=== PATIENT | male | born 1985 | race Caucasian/White ===

== ENCOUNTER 2018-12-19 22:58 | Emergency (ER) | payer SELFPAY ==
--- NOTE | 2018-12-19 23:09 | EDM.PDOC ---
ED HPI GENERAL MEDICAL PROBLEM - General Chief Complaint: Back Pain or Injury Stated Complaint: PT HAS BACK PAIN Time Seen by Provider: 12/19/18 23:05 - History of Present Illness INITIAL COMMENTS - FREE TEXT/NARRATIVE: HISTORY AND PHYSICAL: History of present illness: Patient 33-year-old male presents with concern of low back pain 2 months he denies numbness weakness incontinence or retention bowel or bladder Review of systems: As per history of present illness and below otherwise all systems reviewed and negative. Past medical history: As per history of present illness and as reviewed below otherwise noncontributory. Surgical history: As per history of present illness and as reviewed below otherwise noncontributory. Social history: No reported history of drug or alcohol abuse. Family history: As per history of present illness and as reviewed below otherwise noncontributory. Physical exam: HEENT: Atraumatic, normocephalic, pupils reactive, negative for conjunctival pallor or scleral icterus, mucous membranes moist, throat clear, neck supple, nontender, trachea midline. Lungs: Clear to auscultation, breath sounds equal bilaterally, chest nontender. Heart: S1S2, regular, negative for clicks, rubs, or JVD. Abdomen: Soft, nondistended, nontender. Negative for masses or hepatosplenomegaly. Negative for costovertebral tenderness. Pelvis: Stable nontender. Genitourinary: Deferred. Rectal: Deferred. Extremities: Atraumatic, negative for cords or calf pain. Neurovascular unremarkable. Neuro: Awake, alert, oriented. Cranial nerves II through XII unremarkable. Cerebellum unremarkable. Motor and sensory unremarkable throughout. Exam nonfocal. Back: Patient is a mild tenderness in paravertebral region at the level of the lumbar spine no vertebral body or point tenderness patient able [employer] back on his heels deep tendon reflexes motor and sensory are normal Diagnostics: None Therapeutics: None Impression: #1 low back pain Definitive disposition and diagnosis as appropriate pending reevaluation and review of above. - Related Data Allergies Allergy/AdvReac Type Severity Reaction Status Date / Time shrimp Allergy Vomiting Verified 08/09/16 04:05 Home Meds: Home Meds . [No Known Home Meds] 08/09/16 [History] Past Medical History - Past Health History Medical/Surgical History: Denies Medical/Surgical History Social & Family History - Family History Family Medical History: Noncontributory - Caffeine Use Caffeine Use: Reports: None ED ROS GENERAL - Review of Systems Review Of Systems: ROS reveals no pertinent complaints other than HPI. ED EXAM, GENERAL - Physical Exam Exam: See Below (See dictation) Departure - Departure Time of Disposition: 23:08 Disposition: Home, Self-Care 01 Condition: Good Clinical Impression: Back pain - Discharge Information Additional Instructions: The following information is given to patients seen in the emergency department who are being discharged to home. This information is to outline your options for follow-up care. We provide all patients seen in our emergency department with a follow-up referral. The need for follow-up, as well as the timing and circumstances, are variable depending upon the specifics of your emergency department visit. If you don't have a primary care physician on staff, we will provide you with a referral. We always advise you to contact your personal physician following an emergency department visit to inform them of the circumstance of the visit and for follow-up with them and/or the need for any referrals to a consulting specialist. The emergency department will also refer you to a specialist when appropriate. This referral assures that you have the opportunity for followup care with a specialist. All of these measure are taken in an effort to provide you with optimal care, which includes your followup. Under all circumstances we always encourage you to contact your private physician who remains a resource for coordinating your care. When calling for followup care, please make the office aware that this follow-up is from your recent emergency room visit. If for any reason you are refused follow-up, please contact the [facility] emergency department at and asked to speak to the emergency department charge nurse . Diclofenac as prescribed follow-up primary medical doctor as needed as discussed return as needed as discussed
[2018-12-19 23:33] VITALS: BP 153/92
== END 2018-12-19 23:23 | disposition home or self-care (01) ==
LOC: MW.ED 22:58
DX: M54.5 Low back pain (principal); Z91.018 Allergy to other foods
CPT/HCPCS: 99283

== ENCOUNTER 2018-12-20 03:34 | Emergency (ER) | payer SELFPAY ==
[2018-12-20] MEDS ORDERED: Ketorolac 60 MG/2 ML SDV IM ONE (03:49)
--- NOTE | 2018-12-20 03:49 | EDM.PDOC ---
ED HPI GENERAL MEDICAL PROBLEM - General Chief Complaint: Back Pain or Injury Stated Complaint: BACK PAIN Time Seen by Provider: 12/20/18 03:46 - History of Present Illness INITIAL COMMENTS - FREE TEXT/NARRATIVE: HISTORY AND PHYSICAL: History of present illness: Patient 33-year-old male with history of back pain 2 months was seen here for same yesterday presents with persistent pain. No numbness weakness incontinence or times of bowel or bladder Review of systems: As per history of present illness and below otherwise all systems reviewed and negative. Past medical history: As per history of present illness and as reviewed below otherwise noncontributory. Surgical history: As per history of present illness and as reviewed below otherwise noncontributory. Social history: No reported history of drug or alcohol abuse. Family history: As per history of present illness and as reviewed below otherwise noncontributory. Physical exam: HEENT: Atraumatic, normocephalic, pupils reactive, negative for conjunctival pallor or scleral icterus, mucous membranes moist, throat clear, neck supple, nontender, trachea midline. Lungs: Clear to auscultation, breath sounds equal bilaterally, chest nontender. Heart: S1S2, regular, negative for clicks, rubs, or JVD. Abdomen: Soft, nondistended, nontender. Negative for masses or hepatosplenomegaly. Negative for costovertebral tenderness. Pelvis: Stable nontender. Genitourinary: Deferred. Rectal: Deferred. Extremities: Atraumatic, negative for cords or calf pain. Neurovascular unremarkable. Neuro: Awake, alert, oriented. Cranial nerves II through XII unremarkable. Cerebellum unremarkable. Motor and sensory unremarkable throughout. Exam nonfocal. Back: No vertebral body or point tenderness motor and sensory are normal the tendon reflexes are normal patient able stand on his toes back on his heels Diagnostics: UA UDS x-ray Therapeutics: Toradol 60 mg IM Impression: #1 low back pain Definitive disposition and diagnosis as appropriate pending reevaluation and review of above. Lower Back Pain Score (Numeric/FACES): 10 - Related Data Allergies Allergy/AdvReac Type Severity Reaction Status Date / Time shrimp Allergy Vomiting Verified 12/20/18 03:45 Home Meds: Home Meds . [No Known Home Meds] 08/09/16 [History] Past Medical History - Past Health History Medical/Surgical History: Denies Medical/Surgical History Social & Family History - Family History Family Medical History: Noncontributory - Caffeine Use Caffeine Use: Reports: None ED ROS GENERAL - Review of Systems Review Of Systems: ROS reveals no pertinent complaints other than HPI. ED EXAM, GENERAL - Physical Exam Exam: See Below (See dictation) Course - Vital Signs Last Recorded V/S: Last Vital Signs Temp 36.5 C 12/20/18 03:43 Pulse 107 H 12/20/18 03:43 Resp 18 12/20/18 03:43 BP 157/105 H 12/20/18 03:43 Pulse Ox 92 L 12/20/18 03:43 - Orders/Labs/Meds Orders: Active Orders 24 hr Category Date Time Status Lumbar Spine 2 or 3V [CR] Stat Exams 12/20/18 03:43 Ordered Departure - Departure Time of Disposition: 03:49 Disposition: Home, Self-Care 01 Clinical Impression: Back pain - Discharge Information Referrals: PCP,None [Primary Care Provider] - Additional Instructions: The following information is given to patients seen in the emergency department who are being discharged to home. This information is to outline your options for follow-up care. We provide all patients seen in our emergency department with a follow-up referral. The need for follow-up, as well as the timing and circumstances, are variable depending upon the specifics of your emergency department visit. If you don't have a primary care physician on staff, we will provide you with a referral. We always advise you to contact your personal physician following an emergency department visit to inform them of the circumstance of the visit and for follow-up with them and/or the need for any referrals to a consulting specialist. The emergency department will also refer you to a specialist when appropriate. This referral assures that you have the opportunity for followup care with a specialist. All of these measure are taken in an effort to provide you with optimal care, which includes your followup. Under all circumstances we always encourage you to contact your private physician who remains a resource for coordinating your care. When calling for followup care, please make the office aware that this follow-up is from your recent emergency room visit. If for any reason you are refused follow-up, please contact the [facility] emergency department at and asked to speak to the emergency department charge nurse. Diclofenac as prescribed and return as needed as discussed - My Orders Last 24 Hours: My Active Orders 12/20/18 03:43 Lumbar Spine 2 or 3V [CR] Stat - Assessment/Plan Last 24 Hours: My Active Orders 12/20/18 03:43 Lumbar Spine 2 or 3V [CR] Stat
--- NOTE | 2018-12-20 04:14 | CR ---
HISTORY: Low back pain COMPARISON: None available. FINDINGS: The lumbar spine was examined with AP, lateral, and lateral spot views for a total of three views. There is no sign of fracture or subluxation. The vertebral bodies are normal in height and they are in anatomic alignment. The disc spaces are normal in height as well. The visualized bony pelvis and bowel gas pattern are normal in appearance. IMPRESSION: Normal lumbar spine. Dictated by Israel Antoine MD @ Dec 20 2018 4:12AM Signed by Dr. Israel Antoine @ Dec 20 2018 4:13AM
[2018-12-20 06:06] VITALS: BP 133/71
== END 2018-12-20 06:08 | disposition home or self-care (01) ==
LOC: MW.ED 03:34
DX: M54.5 Low back pain (principal); Z91.018 Allergy to other foods
CPT/HCPCS: 72100; 80305; 81001; 96372; 99283; J1885